=== PATIENT | male | born 1940 | race Caucasian/White ===

== ENCOUNTER → 2018-04-06 | Day surgery (SDC) | payer MEDICARE ==
[2018-04-05 15:30] LABS: BASOPHILS # (AUTO) 0.1 (0.0-0.1); BASOPHILS % 0.7 % (0.0-1.0); EOSINOPHILS # (AUTO) 0.2 (0.0-0.4); EOSINOPHILS % 1.5 % (0.0-6.0); HEMATOCRIT 42.6 % (38.2-49.6); HEMOGLOBIN 14.4 g/dL (14.0-18.0); LYMPHOCYTES # (AUTO) 2.7 (1.0-3.2); LYMPHOCYTES % 27.9 % (18.0-39.1); MEAN CORPUSCULAR HEMOGLOBIN 30.8 pg (28-32); MEAN CORPUSCULAR HGB CONC 33.8 g/dL (31-35); MEAN CORPUSCULAR VOLUME 91.2 fL (81-99); MONOCYTES # (AUTO) 0.8 (0.2-0.8); NEUTROPHILS % 61.7 % (38.7-80.0); PLATELET COUNT 241 x10e3/uL (140-360); RED BLOOD COUNT 4.67 x10e6/uL (4.3-5.7); RED CELL DISTRIBUTION WIDTH 13.2 % (11.7-14.4)
[2018-04-05 15:38] LABS: INR 1.05; PROTHROMBIN TIME 12.9 seconds (11.9-14.5)
[2018-04-05 15:46] LABS: ALANINE AMINOTRANSFERASE 25 IU/L (0-55); ALBUMIN 3.7 g/dL (3.5-5.0); ALBUMIN/GLOBULIN RATIO 1.1 (0.8-2.0); ALKALINE PHOSPHATASE 62 IU/L (40-150); ANION GAP 13.4 mmol/L (8-16); BLOOD UREA NITROGEN 15 mg/dL (7-26); BUN/CREATININE RATIO 17 (6-25); CALCIUM 9.3 mg/dL (8.4-10.2); CARBON DIOXIDE 24 mmol/L (22-29); CHLORIDE 107 mmol/L (98-107); CHOL/HDL RATIO 2.8 (3.9-4.7); CHOLESTEROL 117 MD/DL (0-199); CREATININE, SERUM 0.86 mg/dL (0.72-1.25); EST GLOMERULAR FILTRATION RATE > 60 ML/MIN (60-); GLUCOSE 100 mg/dL (74-118); HDL CHOLESTEROL 42 MG/DL (40-60); LDL CHOLESTEROL 48 MG/DL (60-130); POTASSIUM 4.4 mmol/L (3.5-5.1); SODIUM 140 mmol/L (136-145); TRIGLYCERIDES 137 MG/DL (0-149)
[2018-04-06] VITALS (13 sets, daily range): BP systolic 114–135; BP diastolic 62–87
[~2018-04-06] VITALS: Ht 180.3 cm; Wt 107.5 kg
[~2018-04-06] MED LIST: ALPRAZOLAM 0.5 MG TAB ONE; ASPIRIN 325 MG TAB ONE; BETA PROSTATE; BUSPIRONE HCL10 MG PO; CLOPIDOGREL BISULFATE 75 MG TAB ONE; DIPHENHYDRAMINE HCL 25 MG CAP ONE; ECOTRIN81 MG PO; FENTANYL CITRATE/PF 100MCG/2 ML INJ ONE; HEPARIN SOD (PORCINE) 1000 UNIT/ML 30ML ONE; HEPARIN SOD/SOD CHLORIDE 2,000 ML ONE; IOPAMIDOL 370 MG/ML 200 ML INFUS..BTL INJ ONE; LIDOCAINE HCL 2% LOCAL 20 ML VIAL ONE; LIPITOR40 MG PO; LOTREL 5-10 MG1 EACH PO; MIDAZOLAM HCL 2 MG/2 ML VIAL ONE; NITROGLYCERIN/D5W 200 MCG/ML 250 ML ONE; PLAVIX75 MG PO; PRILOSEC20 MG PO; SINGULAIR10 MG PO; SODIUM CHLORIDE 0.9% 1000ML 1,000 ML ONE; VERAPAMIL HCL 2.5 MG/ML 2 ML VIAL ONE; ZYRTEC10 M2 PO
--- NOTE | 2018-04-06 12:43 | Operative Report ---
DATE OF PROCEDURE: April 06, 2018 PROCEDURE: Cardiac catheterization report. INDICATIONS FOR THE PROCEDURE: Chest pain, positive stress test, history of CAD. PRE-SEDATION ASSESSMENT: Medical history, social history, and previous experience with anesthesia was reviewed and documented in the preoperative medical record. Results of relevant diagnostic studies were reviewed. Plan, choice of anesthesia, risks, complications, benefits, and alternatives were discussed. The patient deemed appropriate candidate for moderate sedation. CONSENT: The benefits, risks, complications, and alternatives to the procedure were discussed with the patient and informed consent was obtained from the patient. MEDICATIONS: Please see nursing notes for medications administered during the procedure. PROCEDURE: Patient was brought to the cardiac catheterization laboratory in a fasting state. Right wrist was prepped and draped in a sterile fashion. One percent lidocaine was used to infiltrate the right wrist over the radial artery. A 6-Marshallese sheath was placed in the right radial artery using the Seldinger technique. Coronary angiography was performed using a Gab preformed catheter to engage both the RCA and the LCA. Multiple orthogonal views were obtained for each coronary artery. Left heart cath was performed using the same Gab catheter. All catheters were removed over a guidewire. After completion of diagnostic coronary angiography, following lesions were identified for intervention: An 80% mid RCA lesion, type B1. For PCI of the above lesion, IV and IA heparin boluses were used to maintain the ACT near 300 throughout the procedure. Aspirin 325 and Plavix 600 were given in the phlebotomy lab assistant as antiplatelet therapies for PCI of the RCA. IL3.5 guide was used which provided adequate support. Choice PT floppy guidewire was used to cross the lesion. Direct stenting was performed using a Synergy 2.25 x 12-mm drug-eluting stent. This resulted in excellent angiographic results without any dissection, spasm, or complications. Estimated blood loss was approximately 50 mL. SIGNIFICANT FINDINGS: Left main coronary artery short, large caliber, normal. LAD large vessel goes to the apex. Large diagonal-1, luminal irregularities throughout the LAD. Diagonal-1 has about a 30% lesion in the midportion. Left circumflex is large, nondominant vessel, 2 large OM branches. Both branches have luminal irregularities. Secondary branch of OM-2 has about 70% to 80% lesion in the proximal portion; however, this vessel is less than 2 mm in diameter. RCA large, dominant RCA. A medium size RPDA and a small RPL distally. Patent prior RCA stent with 80% lesion proximal to the mid RCA stent. LVEDP was measured to be 15 mmHg. COMPLICATIONS: None. SPECIMEN REMOVED: None. IMPLANTS: Synergy 2.25 x 12-mm drug-eluting stent. ESTIMATED BLOOD LOSS: 50 mL. RECOMMENDATIONS 1. Usual post PCI care until TR Band removal. 2. Close observation post PCI for 6 hours in the recovery area. Patient may be discharged home after observation completed. 3. Aspirin 81 mg daily for life, Plavix 75 mg daily for at least 3 months, preferably 1 year. 4. Continue optimal medical therapy and risk factor control. 5. Call the office for followup in 2 weeks post procedure. Job#: [id number] THOMAS
== END | disposition home or self-care (01) ==
LOC: CATH LAB 06:25
PROVIDERS: ATTEND Internal Medicine
DX: I25.118 Atherosclerotic heart disease of native coronary artery with other forms of angina pectoris (principal); R94.39 Abnormal result of other cardiovascular function study; Z95.5 Presence of coronary angioplasty implant and graft; I10 Essential (primary) hypertension; I65.29 Occlusion and stenosis of unspecified carotid artery; F17.210 Nicotine dependence, cigarettes, uncomplicated; Z86.73 Personal history of transient ischemic attack (TIA), and cerebral infarction without residual deficits; Z95.828 Presence of other vascular implants and grafts; Z79.02 Long term (current) use of antithrombotics/antiplatelets; Z79.82 Long term (current) use of aspirin
CPT/HCPCS: 93458; C9600; 36415; 80053; 80061; 85025; 85347; 85610; 92928; J1644; J2001; J2250; J7030; Q9967

== ENCOUNTER → 2020-05-06 | Day surgery (SDC) | payer MEDICARE, OTHER ==
[2020-05-02 12:40] LABS: BASOPHILS # (AUTO) 0.1 (0.0-0.1); BASOPHILS % 0.7 % (0.0-1.0); EOSINOPHILS # (AUTO) 0.3 (0.0-0.4); EOSINOPHILS % 1.9 % (0.0-6.0); HEMOGLOBIN 14.1 g/dL (14.0-18.0); LYMPHOCYTES # (AUTO) 2.7 (1.0-3.2); MEAN CORPUSCULAR HEMOGLOBIN 29.6 pg (28-32); MEAN CORPUSCULAR VOLUME 92.2 fL (81-99); MONOCYTES # (AUTO) 1.1 (0.2-0.8); MONOCYTES % 8.2 % (4.4-11.3); NEUTROPHILS # (AUTO) 8.8 (2.1-6.9); NEUTROPHILS % 67.7 % (38.7-80.0); PLATELET COUNT 258 x10e3/uL (140-360); RED BLOOD COUNT 4.77 x10e6/uL (4.3-5.7); RED CELL DISTRIBUTION WIDTH 13.7 % (11.7-14.4)
[2020-05-02 13:10] LABS: ALANINE AMINOTRANSFERASE 36 IU/L (0-55); ALBUMIN 3.8 g/dL (3.5-5.0); ALBUMIN/GLOBULIN RATIO 1.2 (0.8-2.0); ALKALINE PHOSPHATASE 81 IU/L (40-150); ANION GAP 16.3 mmol/L (8-16); BLOOD UREA NITROGEN 18 mg/dL (7-26); BUN/CREATININE RATIO 23 (6-25); CALCIUM 8.8 mg/dL (8.4-10.2); CARBON DIOXIDE 20 mmol/L (22-29); CHLORIDE 109 mmol/L (98-107); CREATININE, SERUM 0.79 mg/dL (0.72-1.25); EST GLOMERULAR FILTRATION RATE > 60 ML/MIN (60-); GLUCOSE 86 mg/dL (74-118); POTASSIUM 4.3 mmol/L (3.5-5.1); SODIUM 141 mmol/L (136-145)
--- NOTE | 2020-05-02 17:00 | NUR ---
1700pm preop interview completed aware to maintain Covid precautions, Denies any sign and symptoms. Aware to stop Xarelto on and will take am bp med on procedural date and arrive at 930am on May 06. Aware to stop smoking and drinking alcohol prior to procedural date. Denies question or concerns ds/rn
[2020-05-06] VITALS (8 sets, daily range): BP systolic 127–149; BP diastolic 65–88
[~2020-05-06] VITALS: Ht 180.3 cm; Wt 110.2 kg
[~2020-05-06] MED LIST changes: +BIVALRIUDIN 250 MG/VIAL VIAL IV ONE; -CLOPIDOGREL BISULFATE 75 MG TAB ONE; -HEPARIN SOD (PORCINE) 1000 UNIT/ML 30ML ONE; +MULTIVITAMINS1 EAC7 PO; -NITROGLYCERIN/D5W 200 MCG/ML 250 ML ONE; +PRASUGREL 10 MG TAB ONE; +SODIUM CHLORIDE 0.9% 50ML 50 ML ONE; +SUPER BETA PROSTATE PO; +TYLENOL PM PO; -VERAPAMIL HCL 2.5 MG/ML 2 ML VIAL ONE; +XARELTO10 MG PO
--- NOTE | 2020-05-06 09:55 | NUR ---
0955 am PREP NOTE PROCEDURAL .................................................................................. pt in #10,Identiferx2, prepped for procedure. Alert oriented and appropriate, PERRLA, respirations even and unlabored to room air. Pulses x4 extremities equal . Pedal pulses PT/DP dp/pt weak palpable x4. Cap fill brisk < 3 sec. bilateral feet warm to touch.. Skin warm and dry integrity appears intact in general. IV left hand started and presents healthy w/o s/s of infiltration or complaint. Abdomen soft and supple. pt offered toileting, denies need to urinate or defecate. Personal affects with patient. Family at bedside. Pt and family verbalizes understanding of POC. Pre-Op Meds benadryl and xanax given. bed low and locked, side rails up x2 and call light at side.ds/rn -
--- NOTE | 2020-05-06 12:57 | Operative Report ---
DATE OF PROCEDURE: 05/06/2020 SURGEON: Osmar Carvajal MD INDICATIONS: Coronary artery disease, abnormal stress test. PROCEDURES PERFORMED: 1. Left heart catheterization, selective coronary angiography. 2. Aborted attempted stent placement of the diagonal artery branch of the left anterior descending artery. 3. Conscious sedation, 65 minutes. 4. Ultrasound-guided access in the right radial artery. 5. Deployment of right wrist TR band. COMPLICATIONS: None. RECOMMENDATIONS: Medical therapy. DESCRIPTION OF PROCEDURE: Access was obtained in the right radial artery using ultrasound guidance. A 5-Filipino sheath was placed. Coronary angiography demonstrated short calcified left main, left anterior descending artery, moderate 30% to 50% stenosis. Ramus intermedius, 50% to 70% stenosis. Circumflex, moderate disease. Right coronary artery stented, 20% in-stent restenosis. Diagonal branch was 2 mm with 80% to 90% proximal stenosis. LV end-diastolic pressure is normal. No gradient across the aortic valve on pullback. A 5-Filipino EBU 3.5 guiding catheter was used to cannulate the left main. The patient received intravenous Angiomax for anticoagulation. The lesion in the diagonal artery was crossed using a Runthrough wire. Multiple attempts at passage of a 1.5 mm balloon failed due to his tortuosity and small size of the diagonal artery. No further intervention was attempted. Procedure for intervention was aborted. Right wrist TR band applied. The patient discharged home the same day. Osmar Carvajal MD KSB/MODL /[id number]
== END | disposition home or self-care (01) ==
LOC: CATH LAB 09:18
PROVIDERS: ATTEND Internal Medicine Interventional Cardiology
DX: I25.118 Atherosclerotic heart disease of native coronary artery with other forms of angina pectoris (principal); R94.39 Abnormal result of other cardiovascular function study; I77.1 Stricture of artery; I82.412 Acute embolism and thrombosis of left femoral vein; Z01.812 Encounter for preprocedural laboratory examination; Z11.59 Encounter for screening for other viral diseases; Z79.82 Long term (current) use of aspirin; Z79.02 Long term (current) use of antithrombotics/antiplatelets; Z68.39 Body mass index [BMI] 39.0-39.9, adult; Z95.5 Presence of coronary angioplasty implant and graft; Z82.49 Family history of ischemic heart disease and other diseases of the circulatory system; Z82.3 Family history of stroke
CPT/HCPCS: 36415; 76937; 80053; 85025; 92920; 93454; C1769 ×2; C1887; J0583; J2001; J2250; J3010; J7030; Q9967; U0002; 99152; 99153